=== PATIENT | female | born 1945 ===

== ENCOUNTER 2025-04-14 19:03 | Outpatient (REF) | payer MEDICARE, SELFPAY ==
[2025-04-14 16:00] LABS: WBC Negative HPF (0-5)
== END 2025-04-14 19:04 | disposition home or self-care (01) ==
LOC: LBN 19:03
PROVIDERS: Visit Provider Physician Assistant Medical
DX: R35.0 Frequency of micturition (principal)
CPT/HCPCS: 81015; 87086